=== PATIENT | female | born 1945 | race Caucasian/White ===

== ENCOUNTER 2017-01-21 11:25 | Inpatient (IN) ==
[2017-01-21] MEDS ORDERED: ONDANSETRON 4 MG/2 ML VIAL IV PRN ×2 (12:06→16:21)
--- NOTE | 2017-01-21 12:28 | Emergency Department Note ---
Ewdard Ahumada Brittany, am scribing for, and in the presence of, Bradley Abdi MD 12: 15. Trinidad Ahumada James D, MD, personally performed the services described in this documentation, ascribed by Lisa Leon in my presence, and it is both accurate and complete 225 . Arrival - Arrival Chief Complaint: Fall Stated Complaint: weak dizzy recent fall leg hurting ED Nursing Triage Note: reports that she has been falling this morning and unable to keep anything in her hands. if she picks something up she drops it. pt has a hx of lung ca with bone mets. last chemo was last saturday and radiation yesterday Mode of Arrival: Wheelchair Limitations: No Limitations Source: Significant other, RN Notes Reviewed Time Seen by Provider: 01/21/17 11:59 - History of Present Illness HPI Narrative: This is a 71 y/o female,who presents to the ED S/P fall earlier thsi morning. She reports she is also having weakness in her hands. She reports a low grade fever. her family reports she normally ambulates with a walker but today she has been having trouble walking and getting around. Pt also complains of left lower extremity numbness. Pt has no other complaints/pain in the ED at this time. Pt has a PMHx of HTN, anxiety, depression, brain aneurysm, COPD, bronchitis, obstructive sleep apnea, Lung Cancer, back/neck problems, and degenerative disk. Onset (ago): hour(s) (Started earlier this ) Consistency: constant Severity: moderate Allergies/Adverse Reactions: Allergies Allergy/AdvReac Type Severity Reaction Status Date / Time No Known Allergies Allergy Verified 09/27/16 08:56 Home Medications: Home Medications Medication Instructions Recorded Confirmed Type Gabapentin 300 mg PO TID 09/27/16 01/21/17 History HYDROcodone/ACETAMIN 10-325 [[place] 1 tablet PO Q8H PRN 09/27/16 01/21/17 History 10-325] Montelukast Tab [Singulair Tab] 10 mg PO DAILY 09/27/16 01/21/17 History Morphine Sulfate [Morphine Sulfate 15 mg PO Q8H 09/27/16 01/21/17 History ER] Theophylline ER Tab 300 mg PO BID 09/27/16 01/21/17 History Benzonatate [Benzonatate] 200 mg PO TID PRN 12/05/16 01/21/17 History Albuterol Sulfate [Ventolin HFA] 2 puff INH Q4H PRN 01/21/17 01/21/17 History Budesonide/Formoterol 160-4.5 2 puff INH BID 01/21/17 01/21/17 History [Symbicort 160-4.5] Losartan/Hydrochlorothiazide 1 each PO DAILY 01/21/17 01/21/17 History [Losartan-Hctz 100-12.5 mg Tab] Meloxicam 15 mg PO DAILY PRN 01/21/17 01/21/17 History Methocarbamol Tab [Robaxin Tab] 1,000 mg PO TID PRN 01/21/17 01/21/17 History Morphine Sulfate [Morphine Sulfate 60 mg PO Q8H 01/21/17 01/21/17 History ER] Ondansetron HCl 8 mg PO Q6H PRN 01/21/17 01/21/17 History Venlafaxine HCl [Venlafaxine HCl 150 mg PO DAILY 01/21/17 01/21/17 History ER] Review of System - Review of System 12 point system: reviewed and no additional remarkable complaints except as stated - Review of System Constitutional: Present: fever (Low grade fever) Neurological: Present: weakness, numbness (Numbness to the left lower extermitiy ), abnormal gait (Trouble walking, per family ) Additional ROS comments: Fall Medical,Surgical,& Family Hx - Medical History Cardio: History of: Hypertension Psychological: History of: Anxiety Disorders, Depression Neurology: History of: Brain Aneurysm (?) No history of: Seizures HEENT: History of: Eye Problem (Macular Degeneration; Magnifier), Dental Problems (Upper Full Denture; Partial Lower), HEENT Problems (Sinusitis) Respiratory: History of: Bronchitis, COPD, Obstructive Sleep Apnea (C-Pap), Lung Cancer (2005; Returned now Rt Lung-Sched for Bx 10/02/16), Respiratory Problems (Flu Vac Aug 2016; Aashish Verma [employer]) No history of: Pneumonia (Hx Pneum Vac) Gastrointestinal: History of: Polyps Musculoskeletal: History of: Back/Neck Problems (Bulging Disc; Dr. Aguayo [facility]) , Degenerative Disk Disease, Musculoskeletal Problems (Arthritis) No history of: Herniated Disk Hematology: History of: Clotting Problems (Hx Filter placed for Clots) Other: History of: Cancer (Lung Ca) No history of: Anesthesia Reactions - Surgical History Thoracic Surgeries: Surgical HX of;: Lobectomy (Lower Lt Lobectomy 2005) Neurologic Surgeries: Surgical HX of: Brain Aneurysm (?), Neurologic Surgery ( Brain Surgery ?Due to Aneurysm around 2006 [facility]) HEENT Surgeries: Patient denies: Eye Surgery, Tonsilectomy & Adenoidectomy Abdominal Surgeries: Surgical HX of: Abdominal Surgery (Removal of Polyps), Appendectomy, Cholecystectomy, Colonoscopy Patient denies: EGD Reproductive Surgeries: Surgical HX of;: Hysterectomy (Complete) Orthopedic Surgeries: Surgical HX of;: Orthopedic Surgery (RCR Lt), Spinal Surgery (Neck Surgery 2015; Back Surgery; Steroid Injections) - Social History Smoking Status: Current every day smoker Exam Vital Signs: Vital Signs Temperature 97.0 F L 01/21/17 11:57 Pulse Rate 56 L 01/21/17 12:45 Respiratory Rate 20 01/21/17 12:45 Blood Pressure 114/65 01/21/17 12:45 O2 Sat by Pulse Oximetry 95 01/21/17 12:45 GENERAL: This is a well-nourished well-developed chronically ill-appearing white female in no apparent distress. VITAL SIGNS: Reviewed HEENT: Head is atraumatic and normocephalic. Pupils are equal round react to light. Extraocular movements are intact. Oropharynx is benign with moist mucous membranes. NECK: Neck is soft and supple without tenderness. There are no masses. There is no lymphadenopathy. LUNGS: Lungs are clear to auscultation. Chest rises symmetrically. There is no chest wall tenderness. CV: Heart is regular rate and rhythm without murmurs rubs or gallops. ABDOMEN: Abdomen is soft, nontender to palpation. There are no abdominal abnormal masses palpated. There is no organomegaly. Bowel sounds are present and active. SKIN: Skin is warm and dry. No rash. EXTREMITIES: Patient has full range of motion without tenderness. There is no pedal edema. NEUROLOGIC: Awake alert and oriented 4. Cranial nerves II through XII are grossly intact. Motor is 3-4 over 5 in all extremities bilaterally with the exception of left lower extremity which is 2-3/5. Deep tendon reflexes are 2+ and bilaterally equal. Course - Consultations Consultation #1: Discussed with Dr. Mitchell. Patient will be admitted to his service. Time: 14:24 Results - Labs CBC & BMP: 01/21/17 11:51 01/21/17 11:51 Lab Results: I have reviewed the patients labs Labs: Laboratory Tests 01/21/17 11:51 Calcium 8.9 Albumin 2.6 L - Diagnostic Findings Procedure: CT: report reviewed by me (CT head: No acute intracranial lesion or hemorrhage. CT cervical, thoracic, and lumbar spine: No acute cervical spinal fracture. Patient does have 1 or 2 subcentimeter lucencies within the C2 vertebral body and a lucency at the inferior endplate of C3 which may represent metastatic disease. There is no acute fracture of the thoracic spine. There is multi-level degenerative change. There are scattered opacities within both lungs. There is a 2.3 x 1.3 cm oval hypodense lesion in the right extraforaminal region at the T10-T11 level. This is stable in size and not hypermetabolic on the previous PET scan. There is a large soft tissue mass destroying the left aspect of the sacrum and extending slightly across the left SI joint. This is consistent with metastatic disease. Prior L5-S1 fusion with L5-S1 disc space narrowing. There is multilevel degenerative disc disease of the lumbar spine most severe at L1-L2. 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
--- NOTE | 2017-01-21 12:44 | CT Report ---
Referring physician: Bradley Abdi Exam: CT brain without contrast Date: January 21, 2017 Comparison: None Reason: Head pain, status post fall, history of metastatic lung cancer The patient is an Emergency Department patient on January 21, 2017. Technique: Axial images of the head were obtained without the use of contrast. Total DLP was 1012.1 mGy*cm. Findings: There is mild to moderate generalized cerebral and cerebellar atrophy/volume loss. Mild chronic microvascular ischemic change is also suspected. Metallic density is seen in the region of the left MCA. This likely represents vascular coils/clips related to treatment an aneurysm. No hydrocephalus or midline shift is present. Small lipomas are noted along the interhemispheric fissure. There is no evidence of recent intracranial hemorrhage, abnormal mass effect or an acute infarction. No acute osseous process is seen, but there is craniotomy change overlying the left sylvian fissure and left temporal lobe. There is almost complete opacification of the right maxillary sinus secondary to mucosal thickening and possible fluid. Bilateral antral windows are present. There is also mild thickening of the right maxillary sinus wall, which is likely related to chronic sinusitis. The mastoid air cells appear clear. Impression: 1. No acute intracranial process is identified. 2. Chronic intracranial findings as described above. 3. Right maxillary sinus disease. There is likely a chronic component. The CT exam was performed using one or more of the following dose reduction techniques: Automated exposure control and adjustment of the mA and/or kV according to patient size. PROCEDURE INTERPRETED AT [facility] DEPARTMENT OF RADIOLOGY Final Report Signed by: Dr. Anaya Knowles
[2017-01-21 12:47] LABS: Basophils % 0.4 % (0.0-0.8); Eosinophils % 1.5 % (0.00-10.9); Hematocrit 25.9 VOL% (35.7-47.0); Hemoglobin 8.3 GM/DL (12.0-16.0); Immature Granulocytes % 3.8 %; Lymphocytes # 0.3 10*3/uL (1.4-4.0); Lymphocytes % 11.9 % (21.3-54.2); Mean Corpuscular Hemoglobin 30 PG (27-34); Mean Corpuscular Volume 93.8 FL (87-102); Mean Platelet Volume 9.9 FL (9.6-12.0); Monocytes # 0.3 10*3/uL (0.11-0.8); Monocytes % 10.4 % (1.7-12.7); Neutrophils # 1.9 10*3/uL (1.4-7.4); Platelet Count 194 T/CUMM (130-400); Red Blood Count 2.76 MC/CUMM (3.8-5.5); Red Cell Distribution Width 16.4 % (9.3-17.3); White Blood Count 2.6 T/CUMM (4-12)
[2017-01-21] MEDS ORDERED: ONDANSETRON 4 MG/2 ML VIAL ONE ×2 (12:51→15:15)
--- NOTE | 2017-01-21 12:56 | XRay Report ---
XR chest 1V portable Indication: Shortness of breath. Chest one view: Comparison to 817. Mild cardiomegaly is developed with increased pulmonary vascular congestion. Peripherally, lungs remain relatively clear except for a couple of scattered calcified granulomata. ACDF noted. Impression: Mild CHF. PROCEDURE INTERPRETED AT [facility] DEPARTMENT OF RADIOLOGY Final Report Signed by: Ronaldo Lara M.D.
[2017-01-21 12:58] LABS: INR 1.1; PT Patient Result 11.9 SECS; Partial Thromboplastin Time 28.5 SECS (0-40)
--- NOTE | 2017-01-21 13:01 | CT Report ---
CT lumbar spine wo con Indication: Back pain after fall. CT LUMBAR SPINE WITHOUT CONTRAST DLP: 1012 total mGy*cm Comparison: None Technique: Axial noncontrast CT images of the lumbar spine were obtained. Coronal and sagittal reconstructions were provided. Findings: Patient is osteoporotic. IVC filter, calcified atheromatous disease incidentally noted. L5-S1 fusion with dual posterior rods and transpedicular screw fixation noted. No acute lumbar spine fracture or subluxation shown. Severe L1-2, moderate L2-3, mild L3-4, moderate L4-5 and severe L5-S1 disc space narrowing is present. L5-S1 laminectomy. No bony encroachment on the canal evident. Mild broad-based disc bulge with ligamentum flavum thickening appears to cause mild canal stenosis at least at L1-2 and L2-3. Bony destruction of the sacrum is present secondary to soft tissue mass. This is most prominent on the left where an approximate 52 x 37 mm mass has replaced the majority of the left sacral alar. It invades across this joint and at least one level. No pathologic fracture seen through that region. Impression: 1. Large soft tissue mass destroying the left aspect of the sacrum and extending slightly across the left SI joint. Findings consistent with metastatic disease in this patient with known lung cancer. 2. Prior L5-S1 fusion with L5-S1 disc space narrowing. Additional diffuse degenerative disc disease of the lumbar spine as described above, most severe at L1-2. 3. Marked osteopenia. PROCEDURE INTERPRETED AT [facility] DEPARTMENT OF RADIOLOGY Final Report Signed by: Ronaldo Lara M.D.
--- NOTE | 2017-01-21 13:01 | CT Report ---
Exam: CT cervical spine without contrast Date: January 21, 2017 Comparison: None Reason: Neck pain status post fall, history of metastatic lung cancer Technique: Axial images of the cervical spine were obtained without the use of contrast. Sagittal and coronal reformatted images were also acquired. Total DLP is 345.3 mGy*cm. Findings: There has been anterior surgical fusion of C3, C4 and C5 with intervertebral disc space material in place. There is moderate disc space narrowing, endplate degenerative change and mild anterior marginal spurring at C5-C6 and C6-C7. There is reversal of the normal cervical lordosis and mild degenerative change at the atlantoaxial joint with mild partially calcified pannus No acute fracture is identified at the cervical spine. There are one or 2 subcentimeter lucencies within the C2 vertebral body and lucency at the the inferior endplate of C3. The patient has history of metastatic lung cancer, and metastatic lesions cannot be excluded. At C2-C3, no neuroforaminal narrowing or spinal canal stenosis is identified. At C3-C4, there is a mild diffuse posterior disc osteophyte complex and uncovertebral hypertrophy. This produces minimal narrowing of the spinal canal, mild left neuroforaminal narrowing and moderate to severe right neuroforaminal narrowing. At C4-C5, there is a posterior disc osteophyte complex which is slightly asymmetric to the right. There is also uncovertebral hypertrophy. This produces minimal narrowing of the spinal canal, severe right neuroforaminal narrowing and [id number] left neuroforaminal narrowing. At C5-C6, there is a diffuse posterior disc osteophyte complex, mild bilateral facet arthropathy and uncovertebral hypertrophy. This produces mild narrowing of the spinal canal, severe left neuroforaminal narrowing and at least moderate right neuroforaminal narrowing. At C6-C7, there is a mild diffuse posterior disc osteophyte complex and uncovertebral hypertrophy. This produces minimal narrowing of the spinal canal, moderate right neuroforaminal narrowing and severe left neuroforaminal narrowing. At C7-T1, there is bilateral facet arthropathy. No spinal canal stenosis is seen, but there is mild right neuroforaminal narrowing. No abnormal prevertebral soft tissue swelling is seen. There are scattered opacities within both upper lung zones, likely representing scarring. A suspicious hypermetabolic nodule was previously seen within the superior segment of the right upper lobe but is not well evaluated on this study. Emphysema is also present. Please see the CT head performed on the same day for further details. Impression: 1. No acute cervical spinal fracture is identified. 2. There are one or 2 subcentimeter lucencies within the C2 vertebral body and lucency at the inferior endplate of C3. This could be related to a benign process such as degenerative change or hemangiomas, but metastatic disease is difficult to exclude in this patient with known lung cancer. Short interval follow-up or correlation with a bone scan or MRI would be helpful. 3. Multilevel degenerative change at the cervical spine as above. PROCEDURE INTERPRETED AT [facility] DEPARTMENT OF RADIOLOGY Final Report Signed by: Dr. Anaya Knowles
[2017-01-21 13:10] LABS: Band Neutrophils 12 % (0-10); Eosinophils 3 % (0-10); Hypochromasia 2+; Lymphocytes 9 % (20-55); Myelocytes 1 %; Platelet Estimate Adequate; Polychromasia Slight; Segmented Neutrophils 64 % (50-85); Total Cells Counted 100
--- NOTE | 2017-01-21 13:12 | CT Report ---
Exam: CT thoracic spine without contrast Date: January 21, 2017 Reason: Upper back pain status post fall, history of metastatic lung cancer Comparison: Outside CT chest August 31, 2016, PET/CT September 17, 2016 Technique: Axial images of the thoracic spine were obtained without the use of contrast. Sagittal and coronal reformatted images were also acquired. Total DLP was 567.2 mGy*cm. Findings: There is mild chronic anterior wedging of the T11 vertebral body. The remaining thoracic vertebral bodies are normal in height, and no new compression fracture is identified. There is multilevel endplate degenerative change and mild to moderate disc space narrowing. Vacuum disc phenomenon is seen at some levels. There is also prominent multilevel anterior and lateral marginal spurring at the thoracic spine. There is mild curvature of the upper thoracic spine to the right. No acute fracture or osseous destructive process is identified at the thoracic spine. In the right extraforaminal region at the T10-T11 level, there is a 2.3 x 1.3 cm oval hypodense lesion. This is stable compared to August 31, 2016 and was not hypermetabolic on a previous PET/CT. This may represent a perineural cyst or nerve sheath tumor. Follow-up is recommended to exclude an aggressive process. There are nodular opacities within the superior segment of the right lower lobe. This could represent the patient's known lung cancer, although other considerations include pneumonia. Mild scattered opacities are seen within the remaining lungs, particularly on the right. This likely reflects atelectasis and scarring, but there could be postradiation change or pneumonia within the inferior/posterior aspect of the right upper lobe and superior segment of the right lower lobe. Impression: 1. No acute fracture or osseous destructive process is identified at the thoracic spine. 2. Multilevel degenerative change at the thoracic spine as above. 3. There are scattered opacities within both lungs as described above. The patient has a history of lung cancer which is difficult to evaluate on this study. 4. There is a 2.3 x 1.3 cm oval hypodense lesion in the right extraforaminal region at the T10-T11 level. It is stable in size and not hypermetabolic on the previous PET/CT. This could represent a perineural cyst or nerve sheath tumor. Follow-up is recommended to exclude an aggressive process. PROCEDURE INTERPRETED AT [facility] DEPARTMENT OF RADIOLOGY Final Report Signed by: Dr. Anaya Knowles
[2017-01-21 13:17] LABS: Alanine Aminotransferase 17 U/L (13-56); Albumin 2.6 G/DL (3.4-5.0); Alkaline Phosphatase 135 U/L (45-117); Aspartate Amino Transferase 18 U/L (0-37); Bilirubin,Total < 0.39 MG/DL (0.2-1.0); Blood Urea Nitrogen 17 MG/DL (7-18); Calcium 8.9 MG/DL (8.5-10.1); Glucose 105 MG/DL (74-106); Osmolality,Calculated 289.7 MOS/KG (273-304); Potassium 4.2 MMOL/L (3.5-5.1); Sodium 145 MMOL/L (136-145); Total Protein 5.5 G/DL (6.4-8.3)
[2017-01-21 13:26] LABS: Apearance,Urine CLEAR (Clear); Bilirubin,Urine Negative (Negative); Blood, Urine Negative (Negative); Glucose,Urine (UA) Negative (Negative); Ketones,Urine Negative (Negative); Mucus,Urine Occasional /LPF (Occasional); Nitrite,Urine Negative (Negative); Protein,Urine Negative; RBC,Urine 1 /HPF (0-4); Squamous Epithelial Cell,Urine Occasional /HPF (0-10); Urine Color Yellow (Yellow); Urine Specific Gravity 1.024 (1.001-1.035); WBC,Urine 1 /HPF (0-6)
[2017-01-21] MEDS ORDERED: HYDROmorphone 2 MG/1 ML VIAL IV STA (15:08)
[2017-01-21] MEDS ORDERED: ONDANSETRON 4 MG/2 ML VIAL IV STA (15:08)
[2017-01-21] MEDS ORDERED: HYDROmorphone 2 MG/1 ML VIAL ONE (15:16)
[2017-01-21] MEDS ORDERED: MYLANTA/LIDO VISC 2:1 300 ML BOTTLE SWISH/SPIT PRN (16:21)
[2017-01-21] MEDS ORDERED: ACETAMINOPHEN 325 MG TABLET PO PRN (16:21)
[2017-01-21] MEDS ORDERED: diphenhydrAMINE CAP 25 MG CAPSULE PO PRN (16:21)
[2017-01-21] MEDS ORDERED: TEMAZEPAM 7.5 MG CAPSULE PO PRN (16:21)
[2017-01-21] MEDS ORDERED: chlorproMAZINE INJ 50 MG in SODIUM CHLORIDE 0.9% 100 ML IV PRN (16:21)
[2017-01-21] MEDS ORDERED: PROMETHAZINE INJ 25 MG in SODIUM CHLORIDE 0.9% 50 ML IV PRN (16:21)
[2017-01-21] MEDS ORDERED: LACTULOSE 20 GM/30 ML UDCUP PO PRN (16:21)
[2017-01-21] MEDS ORDERED: ALPRAZolam 0.25 MG TABLET PO PRN (16:21)
[2017-01-21] MEDS ORDERED: BENZTROPINE 2 MG/2 ML AMP IV PRN (16:21)
[2017-01-21] MEDS ORDERED: guaiFENesin 200 MG/10 ML UDCUP PO PRN (16:21)
[2017-01-21] MEDS ORDERED: ALUMINUM/MAGNES/SIMETH MAX STR 30 ML UDCUP PO PRN (16:21)
[2017-01-21] MEDS ORDERED: LOPERAMIDE 2 MG CAPSULE PO PRN ×2 (16:21)
[2017-01-21] MEDS ORDERED: MYLANTA/LIDO VISC 2:1 300 ML BOTTLE SWISH/SWAL PRN (16:21)
[2017-01-21] MEDS ORDERED: chlorproMAZINE INJ 25 MG in SODIUM CHLORIDE 0.9% 100 ML IV PRN (16:21)
[2017-01-21] MEDS ORDERED: traMADol 50 MG TABLET PO PRN (16:21)
[2017-01-21] MEDS ORDERED: chlorproMAZINE 25 MG TABLET PO PRN (16:21)
[2017-01-21] MEDS ORDERED: MAGNESIUM HYDROXIDE SUSP 30 ML UDCUP PO PRN (16:21)
[2017-01-21] MEDS: SODIUM CHLORIDE 0.9% 1,000 ML IV SCH (17:40)
[2017-01-21] MEDS: HYDROmorphone 2 MG/1 ML VIAL IV PRN ×2 (17:51→20:04)
[2017-01-22] MEDS: HYDROmorphone 2 MG/1 ML VIAL IV PRN ×7 (00:42→23:38)
[2017-01-22 04:15] LABS: Basophils % 0.4 % (0.0-0.8); Eosinophils # 0.1 10*3/uL (0.0-0.87); Eosinophils % 2.2 % (0.00-10.9); Hematocrit 26.9 VOL% (35.7-47.0); Hemoglobin 8.5 GM/DL (12.0-16.0); Immature Granulocytes % 4.4 %; Immature Granulocytes Absolute 0.12 #; Lymphocytes # 0.5 10*3/uL (1.4-4.0); Lymphocytes % 17.2 % (21.3-54.2); Mean Corpuscular HGB Conc 31.6 GM/DL (32-36); Mean Corpuscular Hemoglobin 30 PG (27-34); Mean Corpuscular Volume 94.7 FL (87-102); Mean Platelet Volume 10.1 FL (9.6-12.0); Monocytes # 0.3 10*3/uL (0.11-0.8); Monocytes % 11.7 % (1.7-12.7); Neutrophils # 1.8 10*3/uL (1.4-7.4); Neutrophils % 64.1 % (38.7-73.9); Platelet Count 211 T/CUMM (130-400); Red Blood Count 2.84 MC/CUMM (3.8-5.5); Red Cell Distribution Width 16.2 % (9.3-17.3); White Blood Count 2.7 T/CUMM (4-12)
[2017-01-22 04:53] LABS: Albumin 2.6 G/DL (3.4-5.0); Calcium 9.3 MG/DL (8.5-10.1); Total Protein 5.8 G/DL (6.4-8.3)
[2017-01-22 04:54] LABS: Osmolality,Calculated 287.7 MOS/KG (273-304); Potassium 5.1 MMOL/L (3.5-5.1)
[2017-01-22 05:00] LABS: Band Neutrophils 5 % (0-10); Eosinophils 4 % (0-10); Hypochromasia 1+; Lymphocytes 14 % (20-55); Myelocytes 2 %; Ovalocytes Slight; Platelet Estimate Normal; Segmented Neutrophils 70 % (50-85); Total Cells Counted 100
[2017-01-22] MEDS: SODIUM CHLORIDE 0.9% 1,000 ML IV SCH ×3 (07:00→23:47)
[2017-01-22] MEDS ORDERED: ONDANSETRON 4 MG TABLET PO PRN (07:49)
[2017-01-22] MEDS ORDERED: METHOCARBAMOL 500 MG TABLET PO PRN (07:49)
--- NOTE | 2017-01-22 07:53 | Oncology History&Physical ---
Assessment and Plan (1) Intractable pain Status: Acute Assessment and plan: We will continue with aggressive pain control. I will consult Dr. Aguayo who is her pain management doctor for assistance. We will set her up for an MRI today to reevaluate her lumbar and thoracic area. I will place her on steroids to see if this helps with some of her pain control. We will continue with radiation while she is here in the hospital. Current Visit: Yes (2) Lung cancer Status: Acute Current Visit: Yes (3) Bone metastases Status: Acute Current Visit: Yes (4) COPD (chronic obstructive pulmonary disease) Status: Acute Current Visit: Yes History of Present Illness History of present illness: Ms. Schreiber is a 71 year old female with newly diagnosed metastatic lung cancer with a right lung primary lesion and a known large left sacral mass causing significant pain issues. This mass was found during workup by her pain management doctor and bone scan last week confirmed tumor. She began palliative radiotherapy to this left sacral mass last week but it sounds like she only received 2-3 days of treatment. She presented to the emergency room yesterday with weakness and severe pain. She complains of the pain starting up in the left hip and radiating down the back of her left leg. CT scan done yesterday showed the known bony lesion and a questionable lesion in her thoracic spine. The thoracic area was seen previously and was not active on PET or bone scan. Her weakness has improved significantly. She is admitted for pain control. Home Medications Medication Instructions Recorded Confirmed Type Gabapentin 300 mg PO TID 09/27/16 01/21/17 History HYDROcodone/ACETAMIN 10-325 [[place] 1 tablet PO Q8H PRN 09/27/16 01/21/17 History 10-325] Montelukast Tab [Singulair Tab] 10 mg PO DAILY 09/27/16 01/21/17 History Morphine Sulfate [Morphine Sulfate 15 mg PO Q8H 09/27/16 01/21/17 History ER] Theophylline ER Tab 300 mg PO BID 09/27/16 01/21/17 History Benzonatate [Benzonatate] 200 mg PO TID PRN 12/05/16 01/21/17 History Albuterol Sulfate [Ventolin HFA] 2 puff INH Q4H PRN 01/21/17 01/21/17 History Budesonide/Formoterol 160-4.5 2 puff INH BID 01/21/17 01/21/17 History [Symbicort 160-4.5] Losartan/Hydrochlorothiazide 1 each PO DAILY 01/21/17 01/21/17 History [Losartan-Hctz 100-12.5 mg Tab] Meloxicam 15 mg PO DAILY PRN 01/21/17 01/21/17 History Methocarbamol Tab [Robaxin Tab] 1,000 mg PO TID PRN 01/21/17 01/21/17 History Morphine Sulfate [Morphine Sulfate 2 tablet PO BID 01/21/17 01/21/17 History ER] Ondansetron HCl 8 mg PO Q6H PRN 01/21/17 01/21/17 History Venlafaxine HCl [Venlafaxine HCl 150 mg PO DAILY 01/21/17 01/21/17 History ER] Allergies Allergy/AdvReac Type Severity Reaction Status Date / Time No Known Allergies Allergy Verified 09/27/16 08:56 Medical,Surgical,& Family Hx - Medical History Cardio: History of: Hypertension Psychological: History of: Anxiety Disorders, Depression Neurology: History of: Brain Aneurysm (2006 Brain anerysm surgery) No history of: Seizures HEENT: History of: Eye Problem (Macular Degeneration; Magnifier), Dental Problems (Upper Full Denture; Partial Lower), HEENT Problems (Sinusitis) Respiratory: History of: Bronchitis, COPD, Obstructive Sleep Apnea (C-Pap), Lung Cancer (2005; Returned now Rt Lung-Sched for Bx 10/02/16), Respiratory Problems (Flu Vac Aug 2016; 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 Aguayo [facility]) , Degenerative Disk Disease, Musculoskeletal Problems (Arthritis) No history of: Herniated Disk Hematology: History of: Clotting Problems (Hx Filter placed for Clots) Other: History of: Cancer (Lung Ca) No history of: Anesthesia Reactions - Surgical History Thoracic Surgeries: Surgical HX of;: Lobectomy (Lower Lt Lobectomy 2005) Neurologic Surgeries: Surgical HX of: Brain Aneurysm (2006 Brain anerysm surgery ), Neurologic Surgery (Brain Surgery ?Due to Aneurysm around 2006 [facility]) HEENT Surgeries: Patient denies: Eye Surgery, Tonsilectomy & Adenoidectomy Abdominal Surgeries: Surgical HX of: Abdominal Surgery (Removal of Polyps), Appendectomy, Cholecystectomy, Colonoscopy Patient denies: EGD Reproductive Surgeries: Surgical HX of;: Hysterectomy (Complete) Orthopedic Surgeries: Surgical HX of;: Orthopedic Surgery (RCR Lt), Spinal Surgery (Neck Surgery 2016; Back Surgery; Steroid Injections) - Social History Smoking Status: Current every day smoker Frequency of Alcohol Use: None Type of Drug Use: None 12 point system: reviewed and no additional remarkable complaints except as stated - Respiratory Respiratory: Present: cough, dyspnea - Musculoskeletal Musculoskeletal ROS: Present: as per HPI, back pain - Neurological Neurological ROS: abnormal gait Exam - Constitutional Vitals: Period Temp Pulse Resp BP Sys/[place] Pulse Ox Last 24 Hr 98.3 F-99.6 F 79-98 18-20 117-141/59-79 91-959 General appearance: normal weight, no acute distress - Head Head Exam: Present: normocephalic, atraumatic - Eye Eye Exam: Present: EOMI Pupils: Present: PERRL - ENT ENT exam: Present: normal exam, normal oropharynx - Neck Neck exam: Absent: lymphadenopathy, thyromegaly - Respiratory Respiratory exam: Present: CTAB. Absent: wheezes - Cardiovascular Cardiovascular exam: Present: RRR. Absent: JVD, systolic murmur - GI/Abdominal GI/Abdominal exam: Present: soft. Absent: ascites, distended, mass - Extremities Exam Extremities exam: Present: normal inspection. Absent: edema - Neurological Exam Neurological exam: Present: alert, oriented X3 - Psychiatric Psychiatric exam: Present: normal affect, depressed - Skin Skin exam: Present: warm, dry Results - Labs CBC & BMP: 01/22/17 03:59 01/22/17 03:59 Lab Results: I have reviewed the past 24 hour labs - Diagnostic Findings Procedure: CT: report reviewed by me Quality Measures - Stroke Symptom Onset Unknown: No
[2017-01-22] MEDS: VENLAFAXINE XR 75 MG CAPSULE PO SCH (09:33)
[2017-01-22] MEDS: MONTELUKAST 10 MG TABLET PO SCH (09:33)
[2017-01-22] MEDS: LOSARTAN 50 MG TABLET PO SCH (09:33)
[2017-01-22] MEDS: GABAPENTIN 300 MG CAPSULE PO SCH ×2 (09:33→17:11)
[2017-01-22] MEDS: MORPHINE ER 30 MG TABLET PO SCH ×2 (09:33→20:47)
[2017-01-22] MEDS: LOSARTAN/HCTZ 50-12.5 MG TABLET PO SCH (09:33)
[2017-01-22] MEDS: THEOPHYLLINE ER 300 MG TABLET PO SCH ×2 (09:33→20:47)
[2017-01-22] MEDS: DEXAMETHASONE 4 MG/1 ML VIAL IV SCH ×2 (09:33→20:46)
[2017-01-22] MEDS: ENOXAPARIN 30 MG/0.3 ML SYRINGE SUBCUT SCH (09:38)
[2017-01-22] MEDS: MORPHINE ER 15 MG TABLET PO SCH ×3 (09:57→16:47)
[2017-01-22] MEDS ORDERED: ALBUTEROL 2.5 MG/3 ML NEB RESP TX PRN (11:00)
--- NOTE | 2017-01-22 12:27 | Magnetic Resonance Report ---
Exam: MRI thoracic spine without contrast Date: January 22, 2017 Comparison: CT thoracic spine without contrast January 21, 2017, CT chest with contrast September 10, 2016 Reason: Inability to walk, metastatic lung cancer Technique: MRI of the thoracic spine was performed without the use of contrast. Obtained sequences include sagittal T2, sagittal T1, sagittal STIR, axial T2 and axial T1 sequences. A 1.5 Meghna magnet was used. Contrast was not given due to patient motion which increased throughout the exam. Findings: Motion artifact is present and limits the study. There is minimal chronic anterior wedging of the T11 vertebral body. No acute compression fracture is seen at the thoracic spine. The patient has a history of metastatic lung cancer. Motion artifact makes evaluation for a subtle osseous lesion difficult, but no definite suspicious lesion is identified at the thoracic spine. There is multilevel disc desiccation, endplate degenerative change and disc space narrowing at the thoracic spine. Sagittal alignment is within normal limits. Note is made of multilevel degenerative change and surgical fusion at the cervical spine. There is also degenerative change at the visualized upper lumbar spine. There are multilevel posterior disc bulges/protrusions which are most prominent at T8-T9, T9-T10 and T10-T11. This produces minimal narrowing the spinal canal at T8-T9, mild narrowing of the spinal canal at T9-T10 and mild to moderate narrowing of the spinal canal at T10-T11. The disc bulge at T10-T11 abuts the anterior aspect of the spinal cord. Evaluation of the neuroforamina is limited, but multilevel mild neuroforaminal narrowing is suspected. The spinal cord is unremarkable as visualized, but evaluation is limited by motion artifact. In the right extraforaminal region at T10-T11, there is a lobulated T2 hyperintense/T1 hypointense structure which measures 2.4 x 1.3 cm. This corresponds to finding on the previous CT and appears relatively stable compared to a prior contrast chest CT performed on August 31, 2016. No enhancement of this lesion was seen on the previous CT, and this is suspected to represented a benign cystic lesion such as a perineural cyst. However, a nerve sheath tumor is still difficult to exclude, and follow-up is recommended. A similar 1.2 x 0.8 cm lesion is seen in the right extraforaminal region at T9-T10. The lungs are not well evaluated on this study, please see the previous CT chest study for further details. Impression: 1. Motion artifact is present and degrades the quality of the study. 2. No definite suspicious osseous lesion is identified at the thoracic spine. 3. Prominent multilevel degenerative change at the thoracic spine as above. 4. A 2.4 x 1.3 cm T1 hypointense/T2 hyperintense lesion is seen in the right extraforaminal region at the T10-T11 level. This likely represents benign cystic lesion such as a perineural cyst, but a nerve sheath tumor is still difficult to exclude. An aggressive process is thought less likely, but follow-up is recommended to confirm stability. A similar 1.2 x 0.7 cm lesion is seen in the right extraforaminal region at T9-T10. PROCEDURE INTERPRETED AT [facility] DEPARTMENT OF RADIOLOGY Final Report Signed by: Dr. Anaya Knowles
[2017-01-22] MEDS: BENZONATATE 100 MG CAPSULE PO PRN ×2 (14:15→20:52)
[2017-01-22] MEDS: BUDESONIDE/FORMOTEROL 160-4.5 INHALER 6 GM INH SCH ×2 (16:47→20:53)
--- NOTE | 2017-01-22 17:44 | Pain Management Consult Note ---
Assessment and Plan (1) Lumbosacral myelopathy Problem details: Left lower extremity pain secondary to large sacral mass metastatic Status: Acute Assessment and plan: 01/22/2017. The patient was found during her workup in the past few weeks to have a large sacral mass which is secondary to her metastatic lung cancer. She has developed increasing left buttock and left leg pain. Over the past several days she has now developed increasing weakness and left lower extremity pain much of her pain is neuropathic in nature. We have discussed the possibility of intrathecal opioids, but may consider spinal cord stimulator trial which may cover her pain quite well. In the meantime we will titrate Neurontin further so that possibly she can get off the IV narcotics and progress to home care. y Current Visit: Yes History of Present Illness Chief complaint: Left leg pain History of present illness: Ms. Schreiber is a 71 year old female with metastatic lung cancer and left lower back and left leg pain. She has been found to have a large cervical mass and has pain in this area on the left. The pain is a throbbing aching constant pain that has gotten worse with time. Associated with this she has progressive numbness and weakness in the left lower extremity. Home Medications Medication Instructions Recorded Confirmed Type Gabapentin 300 mg PO TID 09/27/16 01/21/17 History HYDROcodone/ACETAMIN 10-325 [[place] 1 tablet PO Q8H PRN 09/27/16 01/21/17 History 10-325] Montelukast Tab [Singulair Tab] 10 mg PO DAILY 09/27/16 01/21/17 History Morphine Sulfate [Morphine Sulfate 15 mg PO Q8H 09/27/16 01/21/17 History ER] Theophylline ER Tab 300 mg PO BID 09/27/16 01/21/17 History Benzonatate [Benzonatate] 200 mg PO TID PRN 12/05/16 01/21/17 History Albuterol Sulfate [Ventolin HFA] 2 puff INH Q4H PRN 01/21/17 01/21/17 History Budesonide/Formoterol 160-4.5 2 puff INH BID 01/21/17 01/21/17 History [Symbicort 160-4.5] Losartan/Hydrochlorothiazide 1 each PO DAILY 01/21/17 01/21/17 History [Losartan-Hctz 100-12.5 mg Tab] Meloxicam 15 mg PO DAILY PRN 01/21/17 01/21/17 History Methocarbamol Tab [Robaxin Tab] 1,000 mg PO TID PRN 01/21/17 01/21/17 History Morphine Sulfate [Morphine Sulfate 2 tablet PO BID 01/21/17 01/21/17 History ER] Ondansetron HCl 8 mg PO Q6H PRN 01/21/17 01/21/17 History Venlafaxine HCl [Venlafaxine HCl 150 mg PO DAILY 01/21/17 01/21/17 History ER] Allergies Allergy/AdvReac Type Severity Reaction Status Date / Time No Known Allergies Allergy Verified 09/27/16 08:56 Medical,Surgical,& Family Hx - Medical History Cardio: History of: Hypertension Psychological: History of: Anxiety Disorders, Depression Neurology: History of: Brain Aneurysm (2006 Brain anerysm surgery) No history of: Seizures HEENT: History of: Eye Problem (Macular Degeneration; Magnifier), Dental Problems (Upper Full Denture; Partial Lower), HEENT Problems (Sinusitis) Respiratory: History of: Bronchitis, COPD, Obstructive Sleep Apnea (C-Pap), Lung Cancer (2005; Returned now Rt Lung-Sched for Bx 10/02/16), Respiratory Problems (Flu Vac Aug 2016; [employer]) No history of: Pneumonia (Hx Pneum Vac) Gastrointestinal: History of: Polyps Musculoskeletal: History of: Back/Neck Problems (Bulging Disc; Dr. Aguayo [facility]) , Degenerative Disk Disease, Musculoskeletal Problems (Arthritis) No history of: Herniated Disk Hematology: History of: Clotting Problems (Hx Filter placed for Clots) Other: History of: Cancer (Lung Ca) No history of: Anesthesia Reactions - Surgical History Thoracic Surgeries: Surgical HX of;: Lobectomy (Lower Lt Lobectomy 2005) Neurologic Surgeries: Surgical HX of: Brain Aneurysm (2006 Brain anerysm surgery ), Neurologic Surgery (Brain Surgery ?Due to Aneurysm around 2006 [facility]) HEENT Surgeries: Patient denies: Eye Surgery, Tonsilectomy & Adenoidectomy Abdominal Surgeries: Surgical HX of: Abdominal Surgery (Removal of Polyps), Appendectomy, Cholecystectomy, Colonoscopy Patient denies: EGD Reproductive Surgeries: Surgical HX of;: Hysterectomy (Complete) Orthopedic Surgeries: Surgical HX of;: Orthopedic Surgery (RCR Lt), Spinal Surgery (Neck Surgery 2016; Back Surgery; Steroid Injections) - Social History Smoking Status: Current every day smoker Frequency of Alcohol Use: None Type of Drug Use: None Quality Measures - Stroke Symptom Onset Unknown: No - Constitutional Constitutional: Present: daytime sleepiness, fatigue, lethargy, malaise, weakness - Gastrointestinal Gastrointestinal: Present: constipation - Musculoskeletal Musculoskeletal: Present: back pain, joint swelling, muscle weakness (Left lower extremity) - Neurological Neurological: Present: numbness (Left lower extremity), paresthesias (Left lower extremity) Exam - Constitutional Vitals: Period Temp Pulse Resp BP Sys/Manzanares Pulse Ox Last 24 Hr 96.2 F-99.6 F 77-98 16-20 119-173/60-79 91-99 General appearance: normal weight - Eye Eye exam: Present: EOMI - Respiratory Respiratory exam: Present: rhonchi - Cardiovascular Cardiovascular exam: Present: RRR - GI/Abdominal GI/Abdominal exam: Present: soft - Back Exam Back exam: Present: vertebral tenderness (Left lower back) - Neurological Exam Neurological exam: Present: alert, oriented X3, motor sensory deficit (Left lower extremity, L3 through S1.). Absent: reflexes normal Results - Labs CBC & BMP: 01/22/17 03:59 01/22/17 03:59
[2017-01-22] MEDS: GABAPENTIN 400 MG CAPSULE PO SCH (20:47)
--- NOTE | 2017-01-23 07:56 | Discharge Summary ---
Hospital Course - Hospital Course Hospital Course: This is a 71-year-old white female with metastatic lung cancer with bony involvement including a large lesion in her left sacrum. She is admitted for intractable pain. CT imaging an MRI of her thoracic spine did not show any new lesions. Pain management was consulted and they adjusted her Neurontin and MS Contin. This dramatically improved her pain. On the morning of 01/23/2017, she states that she is ready to go home. I explained her that she is due chemotherapy and radiation today. She was nervous that this would be too much for her to handle and go home. I will go ahead and do her discharge summary and orders in case she does feel up to going home later today. We will proceed on with chemotherapy today using low-dose Taxol. I will write her prescriptions for MS Contin and Neurontin but will defer further refills to pain management. 1. Pt needs to see me in clinic next Saturday with CBC/CMP/CEA Diagnosis - Discharge Diagnosis (1) Intractable pain Status: Acute (2) Lung cancer Status: Acute (3) Bone metastases Status: Acute (4) COPD (chronic obstructive pulmonary disease) Status: Acute Discharge Plan - Discharge Data Disposition: Disch To Home/Self Care Condition at Discharge: Stable Discharge Diet: advance to your usual diet Activity: resume usual activities as tolerated Hygiene: no restrictions - Discharge Medications New Gabapentin Cap/Tab [Neurontin Cap/Tab] 400 mg PO TID #90 capsule Continue Montelukast Tab [Singulair Tab] 10 mg PO DAILY HYDROcodone/ACETAMIN 10-325 [[place] 10-325] 1 tablet PO Q8H PRN PRN Reason: Pain Theophylline ER Tab 300 mg PO BID Losartan/Hydrochlorothiazide [Losartan-Hctz 100-12.5 mg Tab] 1 each PO DAILY Budesonide/Formoterol 160-4.5 [Symbicort 160-4.5] 2 puff INH BID Methocarbamol Tab [Robaxin Tab] 1,000 mg PO TID PRN PRN Reason: Muscle SPASMS Ondansetron HCl 8 mg PO Q6H PRN PRN Reason: Vomiting Venlafaxine HCl [Venlafaxine HCl ER] 150 mg PO DAILY Meloxicam 15 mg PO DAILY PRN PRN Reason: Pain Morphine Sulfate [Morphine Sulfate ER] 2 tablet PO BID #120 Benzonatate 200 mg PO TID PRN PRN Reason: Cough Albuterol Sulfate [Ventolin HFA] 2 puff INH Q4H PRN PRN Reason: Shortness Of Breath/Wheezing Discontinued Morphine Sulfate [Morphine Sulfate ER] 15 mg PO Q8H Gabapentin 300 mg PO TID - Follow Up or Referral - Forms/Instructions Exam - Constitutional Vitals: Period Temp Pulse Resp BP Sys/Manzanares Pulse Ox Last 24 Hr 96.2 F-98.3 F 74-83 16-21 119-173/62-79 94-99 Discharge Results Procedures and tests throughout hospitalization: Pending Orders 01/23/17 16:21 MR lumbar spine wo/w con Stat DS: Provider Date of admission: 01/21/17 14:29 Primary care physician: Sadia Garcia MD Attending physician on admission: Zach Mitchell MD Consults: 01/21/17 16:21 Consult to Physical Therapy [CONS] Routine Reason for Physical Therapy: Weakness Start Therapy: Tomorrow 01/21/17 16:26 Consult to Pharmacy [CONS] Routine Reason for Pharmacy Consult: Adjust Meds Renal Funct 01/21/17 16:29 Consult to Dietitian [CONS] Routine Reason for Dietitian: Other Consult Comment: admission assessment 01/22/17 07:48 Consult to Physician [CONS] Routine Comment: Known to you. Pain control. Consulting Provider: Jona Aguayo Consulting Provider Notified: Yes When should Consulting Provider be notified: Now Consult to Specialist Group: Pain Management When should Consulting Provider be notified: Now Person Notified: LIO Date Notified: 01/22/17 Time Notified: 08:39 Discharging clinician: Zach Mitchell MD
[2017-01-23] MEDS ORDERED: FAMOTIDINE 20 MG/2 ML VIAL IV ONE (08:10)
[2017-01-23] MEDS ORDERED: diphenhydrAMINE 50 MG/1 ML VIAL IV ONE (08:10)
[2017-01-23] MEDS ORDERED: SODIUM CHLORIDE 0.9% IV ONE (09:00)
[2017-01-23] MEDS ORDERED: PACLITAXEL IV ONE (09:00)
[2017-01-23] MEDS: VENLAFAXINE XR 75 MG CAPSULE PO SCH (09:02)
[2017-01-23] MEDS: MELOXICAM 7.5 MG TABLET PO PRN (09:03)
[2017-01-23] MEDS: BENZONATATE 100 MG CAPSULE PO PRN ×3 (09:03→21:20)
[2017-01-23] MEDS: LOSARTAN/HCTZ 50-12.5 MG TABLET PO SCH (09:03)
[2017-01-23] MEDS: THEOPHYLLINE ER 300 MG TABLET PO SCH ×2 (09:03→21:21)
[2017-01-23] MEDS: LOSARTAN 50 MG TABLET PO SCH (09:04)
[2017-01-23] MEDS: GABAPENTIN 400 MG CAPSULE PO SCH ×3 (09:04→21:21)
[2017-01-23] MEDS: MORPHINE ER 30 MG TABLET PO SCH ×2 (09:04→21:21)
[2017-01-23] MEDS: MONTELUKAST 10 MG TABLET PO SCH (09:05)
[2017-01-23] MEDS: BUDESONIDE/FORMOTEROL 160-4.5 INHALER 6 GM INH SCH ×2 (09:18→21:23)
--- NOTE | 2017-01-23 12:06 | Pain Management Progress Note ---
Assessment and Plan (1) Lumbosacral myelopathy Problem details: Left lower extremity pain secondary to large sacral mass metastatic Status: Acute Assessment and plan: 01/23/2017. Overall she is improving. Agree with discharge planning. Will proceed with spinal cord similar trial this week, will check scheduled today get back with her on timing. n 01/22/2017. The patient was found during her workup in the past few weeks to have a large sacral mass which is secondary to her metastatic lung cancer. She has developed increasing left buttock and left leg pain. Over the past several days she has now developed increasing weakness and left lower extremity pain much of her pain is neuropathic in nature. We have discussed the possibility of intrathecal opioids, but may consider spinal cord stimulator trial which may cover her pain quite well. In the meantime we will titrate Neurontin further so that possibly she can get off the IV narcotics and progress to home care. y Current Visit: Yes Pain - Subjective Interval history: Improving pain. Exam - Constitutional Vitals: Period Temp Pulse Resp BP Sys/Manzanares Pulse Ox Last 24 Hr 97.4 F-98.3 F 65-83 18-21 128-173/62-79 94-98 Results - Labs CBC & BMP: 01/22/17 03:59 01/22/17 03:59 Quality Measures - Stroke Symptom Onset Unknown: No Specialty Discharge - Follow Up or Referrals Follow up with: Zach Mitchell MD [Physician] - 01/29/17 11:00 am Jim Hamm MD [Physician] - (Radiation daily Saturday thru Saturday.)
[2017-01-23] MEDS: DEXAMETHASONE 4 MG/1 ML VIAL IV SCH (12:53)
[2017-01-23] MEDS: ENOXAPARIN 30 MG/0.3 ML SYRINGE SUBCUT SCH (18:10)
[2017-01-23] MEDS: SODIUM CHLORIDE 0.9% 1,000 ML IV SCH (19:10)
[2017-01-24] MEDS: DEXAMETHASONE 4 MG/1 ML VIAL IV SCH ×2 (01:07→09:07)
--- NOTE | 2017-01-24 05:55 | Oncology Progress Note ---
Assessment and Plan (1) Lung cancer Status: Acute Current Visit: Yes (2) Bone metastases Status: Acute Current Visit: Yes (3) COPD (chronic obstructive pulmonary disease) Status: Acute Current Visit: Yes Oncology Subjective PN Interval history: Ms. Schreiber feels well today. She will be discharged home later this morning. All of her discharge orders were done yesterday. Her prescriptions were written and are placed in her chart. She should be scheduled to see me next Saturday with labs and will likely get chemotherapy. She will need her standard radiotherapy later today. She and I had a brief discussion today about likely converting to Keytruda at her next office visit. Exam - Constitutional Vitals: Period Temp Pulse Resp BP Sys/Manzanares Pulse Ox Last 24 Hr 97.2 F-98.1 F 65-80 18-20 131-151/56-71 92-98 General appearance: normal weight, no acute distress - Head Head Exam: Present: normocephalic, atraumatic - Eye Eye Exam: Present: EOMI Pupils: Present: PERRL - ENT ENT exam: Present: normal exam, normal oropharynx - Neck Neck exam: Absent: lymphadenopathy, thyromegaly - Respiratory Respiratory exam: Present: CTAB. Absent: wheezes - Cardiovascular Cardiovascular exam: Present: RRR. Absent: JVD Results - Labs CBC & BMP: 01/22/17 03:59 01/22/17 03:59 Lab Results: I have reviewed the past 24 hour labs Quality Measures - Stroke Symptom Onset Unknown: No Specialty Discharge - Follow Up or Referrals Follow up with: Jona Aguayo MD [Physician] - (Spinal cord stimulator trial January 30 at 830AM. 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 Appointment for wound check on February 01 at 930AM.) Zach Mitchell MD [Physician] - 01/29/17 11:00 am Jim Hamm MD [Physician] - (Radiation daily Saturday thru Saturday.)
[2017-01-24] MEDS: MORPHINE ER 30 MG TABLET PO SCH (09:02)
[2017-01-24] MEDS: MONTELUKAST 10 MG TABLET PO SCH (09:03)
[2017-01-24] MEDS: THEOPHYLLINE ER 300 MG TABLET PO SCH (09:03)
[2017-01-24] MEDS: VENLAFAXINE XR 75 MG CAPSULE PO SCH (09:03)
[2017-01-24] MEDS: LOSARTAN 50 MG TABLET PO SCH (09:04)
[2017-01-24] MEDS: LOSARTAN/HCTZ 50-12.5 MG TABLET PO SCH (09:04)
[2017-01-24] MEDS: MELOXICAM 7.5 MG TABLET PO PRN (09:04)
[2017-01-24] MEDS: BENZONATATE 100 MG CAPSULE PO PRN (09:04)
[2017-01-24] MEDS: GABAPENTIN 400 MG CAPSULE PO SCH (09:04)
[2017-01-24] MEDS: BUDESONIDE/FORMOTEROL 160-4.5 INHALER 6 GM INH SCH (09:06)
[2017-01-24] MEDS: ENOXAPARIN 30 MG/0.3 ML SYRINGE SUBCUT SCH (09:07)
[2017-01-24 09:37] VITALS: BP 142/83
== END 2017-01-24 10:45 | disposition home or self-care (01) | DRG 948 ==
LOC: N.ED 11:25 → N.EDINP 14:29 → N.4E 16:17
PROVIDERS: ADMIT Specialist; ATTEND Specialist